=== PATIENT | male | born 1940 | race Caucasian/White ===

== ENCOUNTER → 2023-11-30 08:03 | Outpatient (REF) | payer MEDICARE, SELFPAY | LOC: DHCBS HW 08:03 | PROVIDERS: ATTENDING PHYSICIAN Internal Medicine Cardiovascular Disease; FAMILY PHYSICIAN Nurse Practitioner Family | DX: R06.09 Other forms of dyspnea (principal) | CPT/HCPCS: 93306 ==

== ENCOUNTER → 2024-01-11 13:16 | Outpatient (REF) | payer MEDICARE, SELFPAY ==
[2024-01-11 16:37] LABS: Urine Protein 20 mg/dl (0-12)
[2024-01-11 16:46] LABS: Blood Urea Nitrogen 38 mg/dl (9-20); Calcium 8.9 mg/dl (8.4-10.2); Carbon Dioxide 23 mmol/L (22-30); Chloride 102 mmol/L (98-107); Glucose 89 mg/dl (70-99); Phosphorus 3.1 mg/dl (2.5-4.5); Potassium 4.4 mmol/L (3.5-5.1); Sodium 131 mmol/L (135-145); eGFR 39.26
== END ==
LOC: HWRAD 13:16
PROVIDERS: ATTENDING PHYSICIAN Internal Medicine; FAMILY PHYSICIAN Nurse Practitioner Family
DX: N28.1 Cyst of kidney, acquired (principal); N18.32 Chronic kidney disease, stage 3b; N25.81 Secondary hyperparathyroidism of renal origin
CPT/HCPCS: 36415; 76770; 80069; 82570; 83970; 84156

== ENCOUNTER → 2024-02-14 13:16 | Outpatient (REF) | payer MEDICARE, SELFPAY ==
[2024-02-14 16:08] LABS: Osmolality Serum 299 mOsm/kg (275-300)
[2024-02-14 16:17] LABS: Albumin 3.9 g/dl (3.5-5.0); Blood Urea Nitrogen 39 mg/dl (9-20); Calcium 9.6 mg/dl (8.4-10.2); Carbon Dioxide 21 mmol/L (22-30); Chloride 106 mmol/L (98-107); Glucose 98 mg/dl (70-99); Phosphorus 4.4 mg/dl (2.5-4.5); Potassium 4.4 mmol/L (3.5-5.1); Sodium 138 mmol/L (135-145); eGFR 36.66
[2024-02-14 16:36] LABS: TSH 0.45 uIU/ml (0.47-4.68)
[2024-02-14 19:00] LABS: Osmolality Urine 404 mOsm/kg (300-900)
[2024-02-14 19:12] LABS: Urine Sodium 85 mmol/L (30-90)
== END ==
LOC: HWLAB 13:16
PROVIDERS: ATTENDING PHYSICIAN Internal Medicine; FAMILY PHYSICIAN Nurse Practitioner Family
DX: E78.00 Pure hypercholesterolemia, unspecified (principal); D64.9 Anemia, unspecified; N28.1 Cyst of kidney, acquired; I10 Essential (primary) hypertension; E87.20 Acidosis, unspecified
CPT/HCPCS: 36415; 80069; 83930; 83935; 84300; 84443

== ENCOUNTER → 2024-03-02 16:56 | Outpatient (REF) | payer MEDICARE, SELFPAY | LOC: RAD 16:56 | PROVIDERS: ATTENDING PHYSICIAN Nurse Practitioner Family | DX: M25.571 Pain in right ankle and joints of right foot (principal); Z91.81 History of falling; M25.531 Pain in right wrist | CPT/HCPCS: 71101; 73110; 73630 ==

== ENCOUNTER → 2024-03-05 15:49 | Outpatient (REF) | payer MEDICARE, SELFPAY | LOC: RAD 15:49 | PROVIDERS: ATTENDING PHYSICIAN Nurse Practitioner Family | DX: M25.571 Pain in right ankle and joints of right foot (principal); Z91.81 History of falling; M25.531 Pain in right wrist | CPT/HCPCS: 73610 ==

== ENCOUNTER 2024-03-05 16:38 | Emergency (ER) | payer MEDICARE, SELFPAY ==
[2024-03-05 16:49] VITALS: BP 133/78
--- NOTE | 2024-03-05 18:38 | ED.MUSCINJ ---
HPI-Injury
General
Chief Complaint: Musculo-Skeletal Complaint
Source: patient
Exam Limitations: none
Time Seen by Provider: 03/05/24 18:16
Travel History
Have you had any contact with someone who has COVID-19?: No
Do you have any symptoms of coronavirus? Fever > 100 degrees, chills, cough, shortness of breath, sore throat, loss of taste or smell, muscle aches, or headache?: No
History of Present Illness-Injury
Initial Injury comments:
83-year-old male presents complaining of right ankle pain and swelling. He fell 3 days ago and twisted his right ankle. Outpatient x-rays today demonstrated an ankle fracture and was sent here for evaluation. He is not anticoagulated. He has
been walking on his ankle for the past 3 days. He notes swelling and bruising. No other complaints at this time
Phy Exam
Physical Exam
Physical Exam:
General: Well-appearing male no acute respiratory distress
HEENT: Normocephalic atraumatic
Musculoskeletal exam: Right ankle swollen ecchymotic and tender medially and laterally. No significant deformity. The right knee is nontender
Vascular: 2 dorsalis pedis pulse right foot
Neurologic: Good sensation right foot
MDM/Problems Addressed
Differential Diagnosis Includes:
I have visualized x-rays of the right ankle which demonstrate mildly displaced distal fibula and distal tibia fracture. There is no joint space widening. Patient will require posterior and U-splint with orthopedic follow-up. He is accompanied by
his daughter and is going to be staying with his daughter for help.
*Critical Care Note
Total Time (30-74mins, 75-104mins- exclusive of procedures): Not Applicable
ED Attending Note
-
Portions of this chart may have been created with voice recognition software.� Occasional wrong word or��sound alike� substitutions may have occurred due to the inherent limitations of voice recognition software.
Discharge Plan
Departure
Patient Disposition: Home (Routine Discharge)
Date of Disposition: 03/05/24
Time of Disposition: 18:40
Patient with high blood pressure during this ER visit?: No
Discharge Problem:
Ankle fracture, bimalleolar, closed
Instructions: Muscle and Bone Pain (DC), Splint Care
Referrals:
Beatrice Vergara CRNP [Family Provider] -
Sid Martin MD [Active] -
Activity Restrictions/Additional Instructions:
Keep splint on. Elevate for swelling. You may use Tylenol or ibuprofen for pain. Follow-up with orthopedics for next available appointment. Do not bear weight on the right leg
Interventions
Interventions:
*ED COVID-19 Vaccine History Last Done: 03/05/24 16:49
Discharge Date and Time
Print Language: BURKINAN
[2024-03-05 19:06] VITALS: BP 103/73
== END 2024-03-05 19:07 | disposition home or self-care (01) ==
LOC: EMR 16:38
PROVIDERS: EMERGENCY PHYSICIAN Student in an Organized Health Care Education/Training Program; FAMILY PHYSICIAN Nurse Practitioner Family
DX: S82.841A Displaced bimalleolar fracture of right lower leg, initial encounter for closed fracture (principal); X50.1XXA Overexertion from prolonged static or awkward postures, initial encounter
CPT/HCPCS: 99283; 29505; 73610

== ENCOUNTER → 2024-03-12 11:37 | Outpatient (REF) | payer MEDICARE, SELFPAY ==
[2024-03-12 12:51] LABS: % Basophils 0.6 % (0-2); % Immature Granulocytes 0.7 % (0-0.5); % Lymphocytes 19.2 % (20.5-51.1); % Monocytes 10.1 % (1.7-9.3); % Neutrophils 67.4 % (42.2-75.2); Absolute Basophils 0.1 10^3/uL (0-0.2); Absolute Eosinophils 0.2 10^3/uL (0-0.7); Absolute Immature Granulocytes 0.1 10^3/uL (0-0.05); Absolute Lymphocytes 1.6 10^3/uL (1.2-3.4); Absolute Monocytes 0.9 10^3/uL (0.1-0.6); Absolute Neutrophils 5.7 10^3/uL (1.4-6.5); Hematocrit 37.3 % (39.0-52.0); Hemoglobin 12.2 g/dL (13.0-18.0); Mean Corp Hgb Conc. 32.7 g/dL (33.0-37.0); Mean Corpuscular Hgb 32.4 pg (27.0-31.0); Mean Corpuscular Volume 99.2 fL (80.0-94.0); Mean Platelet Volume 9.5 fL (7.4-10.4); Nucleated Red Blood Cells % 0 % (-); Platelet Count 316 10^3/uL (130-400); Red Blood Cell Count 3.76 10^6/uL (4.70-6.10); Red Cell Dist. Width 13.5 % (11.5-14.5); White Blood Cell Count 8.5 10^3/uL (4.8-10.8)
[2024-03-12 14:01] LABS: Blood Urea Nitrogen 39 mg/dl (9-20); Calcium 9.5 mg/dl (8.4-10.2); Carbon Dioxide 23 mmol/L (22-30); Chloride 105 mmol/L (98-107); Glucose 116 mg/dl (70-99); Potassium 4.6 mmol/L (3.5-5.1); Sodium 140 mmol/L (135-145)
== END ==
LOC: REG 11:37
PROVIDERS: ATTENDING PHYSICIAN Student in an Organized Health Care Education/Training Program; FAMILY PHYSICIAN Nurse Practitioner Family
DX: Z01.818 Encounter for other preprocedural examination (principal)
CPT/HCPCS: 36415; 80048; 85025; 93005

== ENCOUNTER 2024-03-15 06:12 | Day surgery (SDC) | payer MEDICARE, SELFPAY ==
--- NOTE | 2024-03-13 13:46 | PTCARENOTE ---
Patients 03/12 EKG abnormal- Reviewed by Dr. Lee. No additional interventions required.
[2024-03-15] VITALS (7 sets, daily range): BP systolic 122–170; BP diastolic 70–91; BMI 28.3
[2024-03-15] MEDS: NORMOSOL-R 1000 IV (14:47)
== END 2024-03-15 19:40 | disposition home or self-care (01) ==
LOC: SDS 06:12
PROVIDERS: ATTENDING PHYSICIAN Student in an Organized Health Care Education/Training Program
DX: S82.841A Displaced bimalleolar fracture of right lower leg, initial encounter for closed fracture (principal); W19.XXXA Unspecified fall, initial encounter
CPT/HCPCS: 27814; 73600; 76000; C1713

== ENCOUNTER → 2024-07-06 11:42 | Outpatient (REF) | payer MEDICARE, SELFPAY ==
[2024-07-06 12:53] LABS: HDL Cholesterol 77 mg/dl; LDL Cholesterol, Calculated 51 mg/dl; Total Cholesterol 163 mg/dl (50-199); Triglyceride 175 mg/dl (10-149); Very Low Density Lipoprotein 35 mg/dl (0-30)
== END ==
LOC: REG 11:42
PROVIDERS: ATTENDING PHYSICIAN Nurse Practitioner Family
DX: E78.00 Pure hypercholesterolemia, unspecified (principal); Z12.5 Encounter for screening for malignant neoplasm of prostate
CPT/HCPCS: 36415; 80061; G0103

== ENCOUNTER 2024-08-24 20:51 | Inpatient (IN) | payer MEDICARE, SELFPAY ==
[2024-08-24] VITALS (13 sets, daily range): BP systolic 106–181; BP diastolic 74–103; BMI 26.8; BMI 25.2
--- NOTE | 2024-08-24 14:28 | ED.GENMED ---
History of Present Illness
General
Chief Complaint: Breathing Problem
Source: patient
Exam Limitations: none
Time Seen by Provider: 08/24/24 14:27
Nursing documentation reviewed up to this point in time: agreed with
History of Present Illness
History of Present Illness:
83-year-old male with/sleep apnea, HTN, HLD, MVP, GERD, Prostate CA, CKD 3, depression, remote history of vertigo needing P/T, presents for 'a few days' of intermittent dizziness, mild nausea, no vomiting. Symptoms worsened today as he felt dizzy
even when sitting still. Using his rollator as usual states he had 'a lot of trouble keeping my balance.'
Denies weakness or numbness in extremities.
Also dyspnea on exertion ie walking from bedroom to bathroom today.
Denies headache, not anticoagulated. Denies change in vision. Denies CP, abdominal pain. Denies f/c, d/c.
Past History
Past History
ED Past Medical History: Cancer (Prostate CA in remission since 2004), GERD, HTN, Hypercholesterolemia, Renal failure, Psychiatric (Depression), Other (Heart murmur), Other (Prostate CA) and Other (Restless leg syndrome)
ED Past Surgical History: Orthopedic and Other (hiatal hernia repair)
Social History
Tobacco: Non-smoker
Alcohol: None
Personal: Single
Living: alone
Employment: Retired
Review of Systems
Review of Systems
Allergies reviewed?: Yes
All Other Systems: ROS reviewed and negative except as documented in HPI and ROS
Constitutional: Denies fever or fatigue
Respiratory: Reports trouble breathing (DAVILA today walking from bedroom short way to bathroom)
Cardiac: Denies chest pain, diaphoresis, palpitations or syncope
ABD/GI: Reports nausea ('elías queasy in my stomach' past 2 days); Denies abdominal pain, vomiting, diarrhea or constipated
: Reports no symptoms
Musculoskeletal: Reports other (restless leg syndrome); Denies edema
Skin: Reports no symptoms
Neurological: Reports dizzy; Denies headache, weakness or numbness
Phy Exam
Physical Exam
Physical Exam:
GENERAL: No acute distress. A&Ox3.
CONSTITUTIONAL: Afebrile.
EYES: PERRL, conjunctivae normal
Neck: Supple
ENMT: moist mucus membranes, Pharynx nl
RESPIRATORY: Regular respirations, nonlabored, lungs clear. Pulse ox 97% RA at rest
CARDIOVASCULAR: Regular rate and rhythm, no murmurs, no rubs.
GI: Soft, nontender, normal BS
MUSCULOSKELETAL: Moves with ease. Well perfused.
SKIN: Warm, dry, pink
PSYCH: Normal mood and affect. Well kept, interactive and appropriate
NEUROLOGIC: Awake, alert and oriented. Speech clear. Strength equal throughout. Cranial nerves II through XII intact. No focal neurological deficits
Scores
NIH Stroke Score
Level of Consciousness: 0 - Alert
LOC Questions: 0-Answers both correctly
LOC Commands: 0-Performs both correctly
Best Horizontal Gaze: 0-Normal
Visual Mcgraw: 0=Normal, no visual loss
Facial Palsy: 0=Normal, symmetrical
Motor - Right Arm: 0=No drift 10 seconds
Motor - Left Arm: 0=No drift 10 seconds
Motor - Right Le-No drift 5 seconds
Motor - Left Le-No drift 5 seconds
Limb Ataxia: 0-Absent
Sensation: 0-Normal
Best Language: 0-No aphasia
Dysarthria: 0-Normal
Extinction and Inattention: 0-No abnormality
Total Score:: 0
Heart Failure Risk
Heart Failure Risk Score: Not Applicable
PESI
Age: 83
Sex: Male
History of cancer: Yes
History of heart failure: No
History of chronic lung disease: No
Heart rate >/= 110: No
Systolic BP <100 mmHg: No
Respiratory rate >/= 30: No
Temperature <36�C/96.8�F: No
Altered mental status (disorientation, lethargy, stupor, or coma): No
O2 saturation <90%: No
Score: 124
Class: Class 4: <126 (high mortality risk 4.0-11.4%)
Course
Orders/Labs/Results
Orders:
Orders
08/24/24 14:32
EKG [Electrocardiogram (*1)] Urgent
Reason for Study: Shortness of Breath
EKG- Treatment ONCE
08/24/24 14:43
CR Chest - 2 Views Urgent
Comment:
Reason For Exam: dizziness, SOB
08/24/24 14:44
Complete Blood Count/With Diff Urgent
Comprehensive Metabolic Panel Urgent
NT-proBNP Urgent
Troponin I Urgent
08/24/24 14:52
CT Head & Neck Angio W/wo IV Urgent
Comment:
Reason For Exam: dizzy, unbalanced
08/24/24 Dinner
Regular
At Your Request: Full Participation
Does patient need a safe tray?: No
08/24/24 16:19
Physical Therapy Consult [Pt Eval And Treat] Urgent
Treatment: Vestibular evaluation
Activity Level: As Tolerated
08/24/24 17:00
0.9% Sodium Chloride 500 ml [Nss] 500 ml IV BOLUS
08/24/24 17:14
Heparin 5,000 units IV NOW STA
Nursing to Place Non Medication Order As Directed
Physician Order: PTT 6 hours after initial start of Heparin infusion
Above order entered?: Yes
08/24/24 17:15
Heparin 53497 Units/250 ml 25,000 units in 250 ml IV PER PROTOCOL
Weight to be used for heparin protocol in kilograms (kg):: 62.2
Protocol:: DVT/PE
PTT Goal Range to be used:: PTT 73 to 111 seconds
Order type:: Initial
INITIAL Infusion Dose (UNITS/KG/hr) & then follow protocol:: 18 units/kg/hr
Infusion Dose in UNITS/hr & then follow protocol (UNITS/hr):: 1,100
INFUSION RATE in mL/hr & then follow protocol (mL/hr):: 11
For DVT/PE algorithm, re-bolus for low PTT?: Yes
PTT less than or equal to 64 seconds:: Re-bolus 80 units/kg (max 10,000units). Increase by 200 units/hr
(+ 2mL/hr)
PTT 64.1 to 72.9 seconds:: Re-bolus 40 units/kg (max 5,000 units). Increase by 100 units/hr
(+ 1mL/hr)
PTT 73 to 111 seconds:: Target Range. No change in rate.
PTT 111.1 to 130.9 seconds:: Decrease rate by 100 units/hr (- 1 mL/hr)
PTT 131 to 199.9 seconds:: HOLD for 1 hr. Then decrease by 200 units/hr (- 2mL/hr)
PTT greater than or equal to 200 seconds:: HOLD for 2 hrs & Notify Provider. Then decrease by 200 units/hr
(- 2mL/hr)
Lab follow-up:: Each change, PTT q6h until 2 consecutive are therapeutic. Then
PTT daily.
08/24/24 17:23
Protime/PTT Urgent
08/24/24 17:38
Heparin 5,000 units IV PRN PRN
08/24/24 17:39
Heparin 2,500 units IV PRN PRN
08/24/24 19:49
Admit/Transfer Patient As Directed
Co-Sign Provider:
Level of Care: Inpatient admission
Assign to:: Telemetry
Physician / Group: brianna hayden
Diagnosis: bilat pe 's
Reason for Telemetry: Arrhythmia
Date to Stop Telemetry: 08/27/24
Time to Stop Telemetry: 11:00
Reason for Hospitalization: bilat pe's
Expected length of stay greater than two midnights?: Yes
ELOS- Estimated Length of Stay in days: 4
I certify the patient meets the requirements for IP care: Yes
Code Status As Directed
Resuscitation Status: Full Code
08/24/24 19:58
PRN Pain Medication Management As Directed
May give lesser potent ordered pain med per pt: Yes
preference::
Protocol:: Medication orders for pain may be administered in a
manner that supports deferring to patient preference
when the pt is:
- Requesting an ordered lesser potent pain medication.
Least to most potent pain medications are defined
as: acetaminophen < NSAID < tramadol < opioids
(morphine, oxycodone, hydromorphone).
- Requesting a lesser dose of the same medication IF
ORDERED.
- Requesting a less intrusive route of administration
if both routes are prescribed by the provider (PO <
IV).
08/24/24 21:43
Acetaminophen [Tylenol] 650 mg PO Q4HPRN PRN
Bisacodyl [Dulcolax] 10 mg RECTAL [id number] PRN
Brimonidine Tartrate/Timolol [Combigan Eye Drops] See Dose Instructions BOTH EYES BID
Docusate W/Senna [Senokot-S] 1 tablet PO BIDPRN PRN
Polyethylene Glycol Powder [Miralax] 17 grams PO DAILYPRN PRN
08/24/24 21:43
Heparin Protocol- PTT Orders As Directed
PTT per Heparin protocol: -Obtain CBC and baseline PTT - if not already collected.
-Obtain PTT 6 hours from start of infusion. Then, every 6 hours until 2 consecutive
PTT's are therapeutic. Then, PTT Daily.
-With each rate change, obtain PTT every 6 hours until 2 consecutive PTT's are
therapeutic. Then, PTT Daily.
Activity As Directed
Activity Level: With Assistance
Intake/ Output As Directed
Frequency: Per unit guidelines
Notify MD As Directed
Notify physician if: PTT is greater than or equal to 200.
Vital Signs As Directed
Frequency: Per unit guidelines
O2 Therapy [RESP] Routine
Nasal Cannula Liter Flow: 2 LPM
Titrate/Wean O2 to maintain O2 sat greater than (%): 92
Pulse Ox/spot Check [RESP] Routine
Quantity: 1
Ot Eval And Treat Routine
Pt Eval And Treat Routine
Activity Level: As Tolerated
08/24/24 21:48
COVID-19 Antigen Urgent
Source: Nasal Swab
08/24/24 22:00
Gabapentin [Neurontin] 300 mg PO HS
Sodium Bicarbonate 325 mg PO BID
Tamsulosin [Flomax] 0.4 mg PO HS
08/24/24 23:00
Pantoprazole [Protonix] 40 mg PO BID
08/25/24 00:16
PTT Routine
08/25/24 05:53
Complete Blood Count/With Diff IN AM
Comprehensive Metabolic Panel IN AM
08/25/24 08:00
Calcium Carbonate/Vitamin D3 [Oscal 500 + D] 500 mg PO DAILY
Cholecalciferol (Vitamin D3) [VITAMIN D3 (cholecalciferol)] 25 mcg PO DAILY
Escitalopram Oxalate [Lexapro] 10 mg PO DAILY
Gabapentin [Neurontin] 200 mg PO BID@0800,1600
Lactobac/Bifidobac [Visbiome] 1 cap PO DAILY
Memantine HCl [Namenda] 10 mg PO DAILY
Multivitamin [Theragran] 1 tablet PO DAILY
Pravastatin Sodium [Pravachol] 20 mg PO DAILY
Rivastigmine [Exelon Patch] 4.6 mg TRANSDERM DAILY
08/25/24 22:00
Latanoprost [Xalatan Ophthalmic Solution] See Dose Instructions BOTH EYES HS
08/26/24 06:00
Complete Blood Count/No Diff Q2D
Comment: notify provider: Platelet count < 130,000 or decrease by 50% from baseline
Complete Blood Count/With Diff IN AM
Comprehensive Metabolic Panel IN AM
08/27/24 06:00
Complete Blood Count/With Diff IN AM
Comprehensive Metabolic Panel IN AM
08/27/24 11:00
DC Protocol for Telemetry ONCE
08/28/24 06:00
Complete Blood Count/No Diff Q2D
Comment: notify provider: Platelet count < 130,000 or decrease by 50% from baseline
08/30/24 06:00
Complete Blood Count/No Diff Q2D
Comment: notify provider: Platelet count < 130,000 or decrease by 50% from baseline
09/01/24 06:00
Complete Blood Count/No Diff Q2D
Comment: notify provider: Platelet count < 130,000 or decrease by 50% from baseline
09/03/24 06:00
Complete Blood Count/No Diff Q2D
Comment: notify provider: Platelet count < 130,000 or decrease by 50% from baseline
09/05/24 06:00
Complete Blood Count/No Diff Q2D
Comment: notify provider: Platelet count < 130,000 or decrease by 50% from baseline
09/07/24 06:00
Complete Blood Count/No Diff Q2D
Comment: notify provider: Platelet count < 130,000 or decrease by 50% from baseline
09/09/24 06:00
Complete Blood Count/No Diff Q2D
Comment: notify provider: Platelet count < 130,000 or decrease by 50% from baseline
Abnormal Lab Results
08/24/24
14:44
RBC 3.89 L 10^6/uL
(4.70-6.10)
Hgb 12.8 L g/dL
(13.0-18.0)
Hct 38.7 L %
(39.0-52.0)
MCV 99.5 H fL
(80.0-94.0)
MCH 32.9 H pg
(27.0-31.0)
Abs Immat Gran (auto) 0.1 H 10^3/uL
(0-0.05)
Absolute Monos (auto) 0.9 H 10^3/uL
(0.1-0.6)
Immature Gran % 0.9 H %
(0-0.5)
Lymphocytes % 18.5 L %
(20.5-51.1)
Monocytes % 13.8 H %
(1.7-9.3)
Carbon Dioxide 20 L mmol/L
(22-30)
BUN 30 H mg/dl
(9-20)
Creatinine 1.9 H mg/dL
(0.7-1.3)
Glucose 100 H mg/dl
(70-99)
08/24/24 14:44
08/24/24 14:44
Vital Signs
Initial and Last Documented VS:
Initial Vital Signs
Temp Pulse Resp BP Pulse Ox
97.9 F 86 16 123/87 93
08/24/24 14:25 08/24/24 14:25 08/24/24 14:25 08/24/24 14:25 08/24/24 14:25
Last Documented Vital Signs
Temp Pulse Resp BP Pulse Ox
98.0 F 95 18 132/87 97
08/25/24 08:01 08/25/24 08:01 08/25/24 08:01 08/25/24 08:01 08/25/24 08:01
MDM/Problems Addressed
Differential Diagnosis Includes:
posterior CVA, BPPV, vestibulopathy, dehydration
MDM/Problems Addressed:
83-year-old male with/sleep apnea, HTN, HLD, MVP, GERD, Prostate CA, CKD 3, depression, remote history of vertigo needing P/T, presents for 'a few days' of intermittent dizziness, mild nausea, no vomiting. Symptoms worsened today as he felt dizzy
even when sitting still. Using his rollator as usual states he had 'a lot of trouble keeping my balance.' He states he took his BP and it was 88/60
Denies weakness or numbness in extremities.
Also dyspnea on exertion ie walking from bedroom to bathroom today.
Denies headache, not anticoagulated. Denies change in vision. Denies CP, abdominal pain. Denies f/c, d/c.
Afebrile, NAD
EKG: NSR, RBBB
3:10 p.m.
CBC unremarkable
CMP: Kidney functions are at their baseline with BUN/creat 30/1.9 otherwise unremarkable
Troponin within normal limits
BNP 2160
P/T eval, agrees exam not consistent with BPPV
No hypotension here
Pt ambulating well with his walker, denies dizziness or room spinning
Pt states 'I don't feel any of those feelings I had before.'
5:00 p.m.
CTA with nothing acute intracranially
Radiologist reports has bilateral PEs involving his distal left main pulmonary after and interlobar pulmonary artery which extend out
PESI Score Class 4: <126 (high mortality risk 4.0-11.4%)
With reported hypotension at home, concern for poss R heart strain , central PE will, hydrate, consider dedicated PE study
Hospitalist notified of admission. Does not recommend PE study at this time due to poor kidney function and CT with IV contrast done earlier
Pt remains stable, asymptomatic.
Chronic conditions affecting care: HTN and Kidney disease
*EKG
EKG Intrepretation Date: 08/24/24
Interpretation: abnormal
Comparison EKG: no changes
Heart Rate: 84
Rate: normal
Rhythm: sinus
[place]: normal axis
Interval: normal interval
QRS Pattern: right bundle branch block
Ischemia: no ischemia
*Critical Care Note
Total Time (30-74mins, 75-104mins- exclusive of procedures): Not Applicable
ED Attending Note
-
Portions of this chart may have been created with voice recognition software.� Occasional wrong word or��sound alike� substitutions may have occurred due to the inherent limitations of voice recognition software.
Discharge Plan
Departure
Patient Disposition: Admit
Admit to: Telemetry
Presentation/result/management discussed w/ accepting MD/DO: Hospitalist
Condition: Fair
Discharge Problem:
Bilateral pulmonary embolism
Interventions
Interventions:
*Risk Screen - Suicide Last Done: 08/24/24 21:59
*General Assessment Last Done: 08/24/24 14:25
*Neglect/Abuse Screening Last Done: 08/24/24 14:25
ED- Fall Risk Assessment Last Done: 08/24/24 14:32
*ED COVID-19 Vaccine History Last Done: 08/24/24 14:25
*Nursing Disposition Last Done: 08/24/24 21:30
ED- Cardiac Assessment Last Done: 08/24/24 14:32
ED- Pulmonary Assessment Last Done: 08/24/24 14:32
Discharge Date and Time
Discharge Date/Time: 08/24/24 23:24
[2024-08-24 14:51] LABS: % Basophils 0.4 % (0-2); % Eosinophils 1.5 % (0-6); % Immature Granulocytes 0.9 % (0-0.5); % Lymphocytes 18.5 % (20.5-51.1); % Monocytes 13.8 % (1.7-9.3); % Neutrophils 64.9 % (42.2-75.2); Absolute Eosinophils 0.1 10^3/uL (0-0.7); Absolute Immature Granulocytes 0.1 10^3/uL (0-0.05); Absolute Lymphocytes 1.3 10^3/uL (1.2-3.4); Absolute Monocytes 0.9 10^3/uL (0.1-0.6); Absolute Neutrophils 4.4 10^3/uL (1.4-6.5); Hematocrit 38.7 % (39.0-52.0); Hemoglobin 12.8 g/dL (13.0-18.0); Mean Corp Hgb Conc. 33.1 g/dL (33.0-37.0); Mean Corpuscular Hgb 32.9 pg (27.0-31.0); Mean Corpuscular Volume 99.5 fL (80.0-94.0); Mean Platelet Volume 9.1 fL (7.4-10.4); Nucleated Red Blood Cells % 0 % (-); Platelet Count 267 10^3/uL (130-400); Red Blood Cell Count 3.89 10^6/uL (4.70-6.10); Red Cell Dist. Width 13.9 % (11.5-14.5); White Blood Cell Count 6.7 10^3/uL (4.8-10.8)
[2024-08-24 15:08] LABS: ALT (SGPT) 20 U/L (0-50); AST (SGOT) 18 U/L (17-59); Albumin 3.7 g/dl (3.5-5.0); Alkaline Phosphatase 110 U/L (38-126); Blood Urea Nitrogen 30 mg/dl (9-20); Calcium 9.1 mg/dl (8.4-10.2); Carbon Dioxide 20 mmol/L (22-30); Chloride 105 mmol/L (98-107); Estimated Creatinine Clearance 20 ml/min; Glucose 100 mg/dl (70-99); Potassium 4.5 mmol/L (3.5-5.1); Sodium 139 mmol/L (135-145); Total Bilirubin 0.4 mg/dl (0.2-1.3); Total Protein 6.3 g/dl (6.3-8.2); eGFR 34.35
[2024-08-24 15:20] LABS: NT-proBNP 2160 pg/ml; Troponin I 0.013 ng/ml
[2024-08-24] MEDS: HEPARIN 5000 UNITS IV (17:49)
[2024-08-24] MEDS: NSS 500 IV (17:49)
[2024-08-24] MEDS: HEPARIN 25000 UNITS/250 ML IV (17:52)
[2024-08-24 17:56] LABS: INR 0.97; PT 13.1 Sec (11.4-14.6)
[2024-08-24 17:57] LABS: APTT 31.1 Sec (23.4-35.0)
--- NOTE | 2024-08-24 18:41 | HPS.HSE ---
Family Physician
-
Family Physician: BRIANA Rios
Chief Complaint
-
Dizziness
History of Present Illness
83-year-old male from home, where he lives by himself complaining of a few days of intermittent dizziness with some mild nausea. He reports he initially started out with a headache several days ago all over his head that resolved then the
intermittent dizziness with nausea started. Today he reports the dizziness worsened and persisted even when he was sitting still. He typically uses his rollator to walk but was having lots of trouble maintaining his balance due to the dizziness.
He denies current dizziness and shortness of breath while sitting in bed. He denies recent travel, prolonged travel. He had a right tib-fib fracture repair in April with nonweightbearing on the right leg for April and May. He does report a
chronic runny nose he denies headache, fever, chills, blurred vision, chest pain, palpitations, shortness of breath, cough, abdominal pain, nausea, vomiting, diarrhea, weakness or numbness in extremities. On the CTA of his head and neck in the ER
it captured pulmonary emboli bilaterally involving the left distal main pulmonary artery and the right interlobar artery. He has no prior history of DVTs, PEs or clotting disorders.
He has past medical history of prostate cancer in remission since 2004, GERD, HTN, HLD, CKD, depression, cardiac murmur, restless leg syndrome, SHIRLEY, depression/anxiety
Medical History
Past Medical History
Past Medical History: Reports Other
Additional Past Medical History:
Dementia/mild
prostate cancer in remission since 2004
HTN
HLD
CKD 3B
GERD/gastric ulcers
MVP
Depression
Restless leg syndrome
SHIRLEY
Depression/anxiety
History of bleeding ulcer
Bilateral hearing aids
Past Surgical History: Reports Other
Additional Past Surgical History:
Hiatal hernia repair
Fracture right tib-fib April 2024 with martin and pin placement [facility]
Lumbar fusion L4-L5, S1
Bilateral shoulder replacements
Bilateral cataract extraction
Dementia/mild
MVP
GERD/gastric ulcers
History of bleeding ulcer
Bilateral hearing aids
Social History
Tobacco: Non-smoker
Alcohol: None
Drug: None
Personal: Single
Living: Alone
Employment: Retired
Family History
Family History: Other (No family history of blood clots, clotting disorders)
Allergies / Home Medications
Allergies reflects when Allergies were last updated in [employer].
Home Medications with original date entered in [employer]
Allergy/Medication List:
Allergies
Allergy/AdvReac Type Severity Reaction Status Date / Time
No Known Allergies Allergy Verified 03/15/24 13:28
Home Medications
Lactobacillus rhamnosus GG 10 billion cell capsule (Culturelle) 1 cap PO DAILY 03/14/24
acetaminophen 500 mg tablet 1,300 mg PO BID 03/14/24
aspirin 81 mg tablet,delayed release 81 mg PO HS 03/14/24
brimonidine 0.2 %-timolol 0.5 % eye drops (Combigan) 1 drp BOTH EYES BID 03/14/24
escitalopram oxalate 10 mg tablet 10 mg PO DAILY 03/14/24
gabapentin 400 mg capsule 1,200 mg PO HS 03/14/24
gabapentin 400 mg capsule 800 mg PO BID@0800,1800 03/14/24
hydrochlorothiazide 25 mg tablet 25 mg PO DAILY 03/14/24
latanoprost (PF) 0.005 % eye drops in a dropperette 1 drp BOTH EYES HS 03/14/24
memantine 10 mg tablet 10 mg PO BID 03/14/24
omeprazole 40 mg capsule,delayed release 40 mg PO BID 03/14/24
pravastatin 20 mg tablet 20 mg PO HS 03/14/24
rivastigmine 4.6 mg/24 hour transdermal patch 4.6 mg transdermal DAILY for memory 03/14/24
sodium bicarbonate 325 mg tablet 325 mg PO BID 03/14/24
tamsulosin 0.4 mg capsule (Flomax) 0.4 mg PO HS 03/14/24
calcium 500 mg (as carbonate)-vitamin D3 10 mcg (400 unit) tablet (Calcium 500 With D) 1 tab PO DAILY 08/24/24
cholecalciferol (vitamin D3) 25 mcg (1,000 unit) capsule (Vitamin D3) 25 mcg PO DAILY 08/24/24
coQ10 (ubiquinol) 100 mg capsule (Qunol Shay CoQ10) 100 mg PO DAILY 08/24/24
dorzolamide 2 % eye drops 1 drp BOTH EYES BID 08/24/24
multivitamin 1 tab PO DAILY 08/24/24
Review of Systems
-
History Source: Patient and Family (Daughter at bedside)
A 12 point ROS was completed and negative except as noted: Yes
Constitutional: Denies Fever, Fatigue or Chills
EENT: Reports Sore Throat and Runny Nose (Chronic)
Respiratory: Reports Trouble Breathing; Denies Cough
Cardiac: Denies Chest Pain, Diaphoresis, Palpitations or Syncope
Abdomen/GI: Denies Abdominal Pain, Nausea, Vomiting, Diarrhea or Constipated
: Denies Dysuria, Frequency, Flank Pain, Incontinence, Difficulty Voiding or Urgency
Musculoskeletal: Denies Joint Pain or Edema
Skin: Denies Itching or Rash
Neurological: Reports Dizzy and Headache
Endocrine: Reports No Symptoms
Hematologic/Lymphatic: Reports No Symptoms
Psych: Reports Calm
Physical Exam
Vital Signs
Vital Signs
Temp Pulse Resp BP Pulse Ox
97.9 F 87 17 132/93 93
08/24/24 14:25 08/24/24 18:15 08/24/24 18:15 08/24/24 17:00 08/24/24 18:15
Physical Exam
General: Comfortable and Conversant; No Pain, Fever or Chills
HEENT: NormoCephalic, Anicteric, Moist mucous membranes, PERRLA, [place] Conjunctivae and No Ptosis
Respiratory: Clear; No Wheezes, Rales or Rhonchi
Cardiac: S1/S2 and Regular Rhythm; No Murmur, Rub, Gallop, Peripheral Edema or JVD
GI: Soft, Non Tender, Non Distended, Normal Bowel Sounds and No Hepatosplenomegaly
Rectal: Deferred by Provider
Genito-urinary: Deferred by me
Musculoskeletal: No Clubbing, No Cyanosis and No Edema
Skin: Warm and Dry; No Rash
Neuro: AO x 3, No Motor Deficits, Nonfocal/grossly intact, Cranial Nerves Intact and No Sensory Deficits; No Slurred Speech, Facial Droop, Tremors or Sedated
Psych: Calm
Laboratory Results
-
08/24/24 14:44
08/24/24 14:44
Laboratory Results
PT 13.1 Sec (11.4-14.6) 08/24/24 17:23
INR 0.97 08/24/24 17:23
APTT 31.1 Sec (23.4-35.0) 08/24/24 17:23
Total Bilirubin 0.4 mg/dl (0.2-1.3) 08/24/24 14:44
AST 18 U/L (17-59) 08/24/24 14:44
ALT 20 U/L (0-50) 08/24/24 14:44
Alkaline Phosphatase 110 U/L (38-126) 08/24/24 14:44
Troponin I 0.013 ng/ml 08/24/24 14:44
Data Reviewed
-
Diagnostic Radiology: Report Reviewed by me
CT Scan: Report Reviewed by me
Lab Data: Labs Reviewed by me
Impression/Plan
-
Impression/plan:
Admit to telemetry
#Bilateral pulmonary emboli distal left main pulmonary artery/anterior lobar pulmonary artery
#Acute hypoxic resp inusff 2/2 to bilat Pe's(patient not in any respiratory distress)
90% RA will start [address] PE study held given creat clearance of 20 and cta earlier with contrast
-IV heparin drip
-Check 2D echo
-IV NSS 1 L given patient had CTA earlier with contrast
-check covid swab
2D echo 11/30/2023: EF 60-65%, mild LVH, no wall abnormalities, trace mitral regurg, mild/moderate aortic regurg, trace TR, pulm arterial pressure 26 mmHg
CTA head and neck:CT Brain: No acute intracranial process. Specifically, no evidence of acute hemorrhage. Mild senescent change.
There is layering secretions within the right greater than left maxillary sinuses which can be seen with sinusitis.
CTA Head: No significant arterial stenosis. Atherosclerotic calcifications of the intracranial ICAs without significant stenosis. No aneurysm.
CTA Neck: No significant arterial stenosis. Atherosclerotic calcifications of the bilateral carotid bifurcations without significant stenosis.
There are pulmonary emboli bilaterally involving the left distal main pulmonary artery which extends into the left segmental pulmonary arteries.
There is also a filling defect within the right interlobar artery consistent with embolus.
#CKD 3B
Creat 1.9 appears baseline
-Follow BMP
-Continue sodium bicarb 325 mg p.o. twice daily
#Dementia�mild
-Continue rivastigmine 4.6 transdermal patch and Namenda 10 mg twice daily
#GERD/Gastric
#History of bleeding ulcer
-Continue omeprazole 40 mg twice daily
#HTN
BP 132/93
-hold hctz
# HLD
-Check lipid profile
#Depression/anxiety
-Continue Lexapro 10 mg daily
# MVP
#Restless leg syndrome
-Patient is on gabapentin 400 mg twice daily and 1200 mg every afternoon
Due to patient's CrCl of 20 with max dose gabapentin 700 mg recommended I will give 200 mg mg of gabapentin 0800, 1600, 2200
#SHIRLEY-noncompliant with his CPAP for the past 4 to 5 months
I advised patient to follow-up with his pulmonary Dr. Garcia for repeat PFTs/sleep study
#Prostate cancer in remission since 2004
#BPH
Continue Flomax 0.4 mg at bedtime
#Bilateral hearing aids
Full code per patient
--- NOTE | 2024-08-24 18:49 | W.PN.UPDATE ---
Update Note
Progress Note Update
Patient seen in conjunction with COPY LATHE OPERATOR, I agree with the findings on history and physical as well as the assessment and plan unless stated otherwise.
Briefly this is an 83-year-old who has a past medical history significant for hypertension, GERD, hyperlipidemia, SHIRLEY, CKD stage III, history of prostate cancer and prior episodes of vertigo who presents to the emergency department with intermittent
dizziness/lightheadedness and nausea without vomiting present for a few days. Symptoms worsened today. [place] unbalanced. He also reports dyspnea on exertion with just walking across the room. Denies any chest pain, palpitations, diaphoresis neuro
cough fevers or chills. Patient denies any urinary symptoms. He denies any focal weaknesses in his upper or lower extremities. He denies any vision changes.
His neurological exam was nonfocal.
Vital signs in the ED showed a stable blood pressure of 132/93 with a pulse rate of 87 and oxygen saturation of 93% on room air. ECG showed normal sinus rhythm at a rate of 80 with a right bundle branch block that is unchanged from prior. His
troponin was 0.01 and his BNP was 2000. CBC was unremarkable. He is electrolytes BUN/creatinine notable for his baseline creatinine of 1.9 but otherwise unchanged from prior. CT of the brain shows no acute findings. CTA of the head and neck
showed calcifications without significant stenosis. Incidental finding on the CTA showed left distal main thrombus as well as extending into the segmental arteries. There is also a right interlobar artery thrombus.
Assessment and plan
Patient with dizziness/lightheadedness and dyspnea on exertion without chest pain found to have a new onset bilateral PE on CTA of the head and neck which does not have any provoking factors.
Pulmonary emboli - Hemodynamically stable and not requiring oxygen. Cannot rule out a saddle embolus based on current imaging. Cannot rule out RV strain. No ECG changes and negative troponin suggests not a submassive PE.
- admit to telemetry
- agree with heparin gtt pending additional testing
- obtain echo in am, no current leg swelling or h/o leg swelling, hold off on leg u/s
- if patient develops tachycardia or becomes relatively hypotensive will get a dedicated Chest CTA and consult pulm and IR
- h/o hiatal hernia, pud with remote GI bleed but otherwise no known bleeding risk factors but currently on aspirin. No h/o known CAD or CVA. Hold aspirin while on AC, continue ppi bid
- routine malignancy screening per pmd, check Xray here
- can be transitioned to oral AC if no procedures indicated.
CKD - Stable CKD III/IV s/p IV contrast
- post contrast ppx with NS 1 L for 12 hours post exposure
- renal dose medications (gabapentin)
- continue sodium bicarbonate
- continue flomax
Code status - full code
[2024-08-24 22:10] LABS: COVID-19 Antigen Negative (Negative)
--- NOTE | 2024-08-24 22:27 | PTCARENOTE ---
Pt. admitted from E.D., AAOx3, ST on monitor, call medrano within reach, bed alarm intact.
[2024-08-24] MEDS: COMBIGAN EYE DROPS 1 DROP BOTH EYES (22:59)
[2024-08-24] MEDS: SODIUM BICARBONATE 325 MG PO (23:00)
[2024-08-24] MEDS: FLOMAX 0.4 MG PO (23:00)
[2024-08-24] MEDS: NEURONTIN 300 MG PO (23:00)
[2024-08-24] MEDS: PROTONIX 40 MG PO (23:01)
[2024-08-25] VITALS (7 sets, daily range): BP systolic 115–139; BP diastolic 71–88; O2SAT 95; BMI 25.2
[2024-08-25 00:53] LABS: APTT > 200 Sec (23.4-35.0)
--- NOTE | 2024-08-25 02:00 | PTCARENOTE ---
Assumed care of pt from GAYATHRI Ventura at 0200. VSS at 0300, pt remains sinus rhythm on tele. No complaints of pain. Heparin gtt resumed at 0300 at 9 mL/hr. Will continue with current plan of care.
[2024-08-25 06:12] LABS: % Basophils 0.6 % (0-2); % Eosinophils 1.6 % (0-6); % Lymphocytes 22.3 % (20.5-51.1); % Monocytes 13.5 % (1.7-9.3); Absolute Basophils 0.1 10^3/uL (0-0.2); Absolute Eosinophils 0.1 10^3/uL (0-0.7); Absolute Immature Granulocytes 0.1 10^3/uL (0-0.05); Absolute Lymphocytes 1.7 10^3/uL (1.2-3.4); Absolute Neutrophils 4.7 10^3/uL (1.4-6.5); Hematocrit 39.4 % (39.0-52.0); Hemoglobin 12.9 g/dL (13.0-18.0); Mean Corp Hgb Conc. 32.7 g/dL (33.0-37.0); Mean Corpuscular Hgb 32.7 pg (27.0-31.0); Mean Platelet Volume 9.1 fL (7.4-10.4); Nucleated Red Blood Cells % 0 % (-); Platelet Count 251 10^3/uL (130-400); Red Blood Cell Count 3.94 10^6/uL (4.70-6.10); Red Cell Dist. Width 13.8 % (11.5-14.5); White Blood Cell Count 7.7 10^3/uL (4.8-10.8)
[2024-08-25 06:27] LABS: APTT 118.2 Sec (23.4-35.0)
[2024-08-25 06:39] LABS: ALT (SGPT) 17 U/L (0-50); AST (SGOT) 14 U/L (17-59); Albumin 3.2 g/dl (3.5-5.0); Alkaline Phosphatase 113 U/L (38-126); Blood Urea Nitrogen 25 mg/dl (9-20); Calcium 8.7 mg/dl (8.4-10.2); Carbon Dioxide 22 mmol/L (22-30); Chloride 107 mmol/L (98-107); Estimated Creatinine Clearance 23 ml/min; Glucose 100 mg/dl (70-99); Potassium 4.3 mmol/L (3.5-5.1); Sodium 140 mmol/L (135-145); Total Bilirubin 0.3 mg/dl (0.2-1.3); Total Protein 5.6 g/dl (6.3-8.2); eGFR 39.26
[2024-08-25] MEDS: LEXAPRO 10 MG PO (08:21)
[2024-08-25] MEDS: VITAMIN D3 (cholecalciferol) 25 MCG PO (08:21)
[2024-08-25] MEDS: THERAGRAN 1 TABLET PO (08:21)
[2024-08-25] MEDS: NEURONTIN 200 MG PO ×2 (08:22→15:27)
[2024-08-25] MEDS: PRAVACHOL 20 MG PO (08:22)
[2024-08-25] MEDS: OSCAL 500 + D 500 MG PO (08:22)
[2024-08-25] MEDS: PROTONIX 40 MG PO ×2 (08:22→20:55)
[2024-08-25] MEDS: SODIUM BICARBONATE 325 MG PO ×2 (08:23→20:55)
[2024-08-25] MEDS: VISBIOME 1 CAP PO (08:23)
[2024-08-25] MEDS: NAMENDA 10 MG PO (08:23)
[2024-08-25] MEDS: EXELON PATCH 4.6 MG TRANSDERM (08:24)
[2024-08-25] MEDS: COMBIGAN EYE DROPS 1 DROP BOTH EYES ×2 (08:31→20:56)
[2024-08-25 09:55] LABS: APTT 118.5 Sec (23.4-35.0)
--- NOTE | 2024-08-25 12:30 | CM ---
Addendum entered by Rose Albrecht 08/25/24 13:28:
CM spoke with pharmacy staff- cost for Eliquis starter pack- $43.68. Patient agreeable to cost, update to Hospitalist.
Original Note:
Patient seen bedside, initial assessment completed. Patient resides alone on second floor apartment, elevator access. Patient has a rollator which he uses all of the time in home, is current with PT services, unsure name of PT agency, reports he
just completed OT services. Patient denies SNF history. Patient confirms PCP Beatrice Vergara, pharmacy [facility], confirms prescription coverage, patient reports he has AAR. Patient denies any insecurities at home. Patient currently on
O2, is not on home O2.
CM received consult for cost of Eliquis starter pack, 10 mg bid 7 days, then 5 mg bid. CM placed call to patients pharmacy, unable to provide cost of
Jardiance until script it obtained, TT to Hospitalist. CM placed call to [facility] [phone], informed call center closed over weekend. CM will continue to follow for all discharge planning needs.
Plan; home, watch for VN need, no skilled need at this time.
--- NOTE | 2024-08-25 14:04 | W.PN.HOSP.TC ---
Today's Communication/Plan
-
ECHO
LE Dopplers
Heparin drip for 24 hours, switch to Eliquis
Wean O2 as tolerated, O2 goal greater than 92%
Assessment / Plan
Assessment / Plan
Physical Exam
General: Comfortable and Conversant; No Pain, Fever or Chills
HEENT: NormoCephalic, Anicteric, Moist mucous membranes, PERRLA, [place] Conjunctivae and No Ptosis
Respiratory: Clear; No Wheezes, Rales or Rhonchi
Cardiac: S1/S2 and Regular Rhythm; No Murmur, Rub, Gallop, Peripheral Edema or JVD
GI: Soft, Non Tender, Non Distended, Normal Bowel Sounds and No Hepatosplenomegaly
Rectal: Deferred by Provider
Genito-urinary: Deferred by me
Musculoskeletal: No Clubbing, No Cyanosis and No Edema
Skin: Warm and Dry; No Rash
Neuro: AO x 3, No Motor Deficits, Nonfocal/grossly intact, Cranial Nerves Intact and No Sensory Deficits; No Slurred Speech, Facial Droop, Tremors or Sedated
Psych: Calm
#Bilateral pulmonary emboli distal left main pulmonary artery/anterior lobar pulmonary artery
#Acute hypoxic respiratory failure 2/2 to bilat Pe's(patient not in any respiratory distress)
-wean o2 as tolerated; goal o2>92%
-CT PE study held given creat clearance of 20 and cta earlier with contrast
-IV heparin drip x 24 hours - then switch to Eliquis - cost is ok
-Check 2D echo
-LE Dopplers ordered
-Trop neg; BNP 2000
#CKD 3B
Creat 1.9 appears baseline
-Follow BMP
-Continue sodium bicarb 325 mg p.o. twice daily
#Dementia�mild
-Continue rivastigmine 4.6 transdermal patch and Namenda 10 mg twice daily
#GERD/Gastric
#History of bleeding ulcer
-Continue omeprazole 40 mg twice daily
#HTN
BP 132/93
-hold hctz
# HLD
-statin
#Depression/anxiety
-Continue Lexapro 10 mg daily
# MVP
#Restless leg syndrome
-Patient is on gabapentin 400 mg twice daily and 1200 mg every afternoon
Due to patient's CrCl of 20 with max dose gabapentin 700 mg recommended I will give 200 mg mg of gabapentin 0800, 1600, 2200
#SHIRLEY-noncompliant with his CPAP for the past 4 to 5 months
I advised patient to follow-up with his pulmonary Dr. Garcia for repeat PFTs/sleep study
#Prostate cancer in remission since 2004
#BPH
Continue Flomax 0.4 mg at bedtime
#Bilateral hearing aids
Full code per patient
Total time spent on today's encounter was 51 minutes which included time spent in counseling the patient/family regarding diagnosis and treatment plan as listed above, goals of care, and symptom management. Case was discussed with nursing staff,
specialists, and care coordinators/case management. All labs and imaging personally reviewed by me. Remainder the time spent in detailed review of previous records, lab data, imaging, and other medical provider documentation.
Anticipated Discharge: > 48 hours
Subjective/Interval History
-
Date of Service: August 25, 2024
No acute events overnight
Objective Data
-
Labs:
Laboratory Results
08/25/24 08/25/24 08/25/24
05:53 08:57 16:00
WBC 7.7
Hgb 12.9 L
Hct 39.4
Plt Count 251
APTT 118.2 H 118.5 H Pending
Sodium 140
Potassium 4.3
Chloride 107
Carbon Dioxide 22
BUN 25 H
Creatinine 1.7 H
Glucose 100 H
Calcium 8.7
Total Bilirubin 0.3
AST 14 L
ALT 17
Alkaline Phosphatase 113
Vital Signs:
Vital Signs
Temp Pulse Resp BP Pulse Ox
98.6 F 87 18 115/77 96
08/25/24 11:35 08/25/24 11:35 08/25/24 11:35 08/25/24 11:35 08/25/24 11:35
Review of Systems
-
History Source: Patient
All other systems: Not reviewed unless documented
Data Reviewed
-
CT Scan: Image personally visualized and interpreted and Report Reviewed by me
Labs: Labs Reviewed by me
[2024-08-25 17:16] LABS: APTT 71.5 Sec (23.4-35.0)
[2024-08-25] MEDS: HEPARIN 2500 UNITS IV (17:41)
[2024-08-25] MEDS: FLOMAX 0.4 MG PO (22:04)
[2024-08-25] MEDS: NEURONTIN 300 MG PO (22:04)
[2024-08-25] MEDS: XALATAN OPHTHALMIC SOLUTION 1 DROP BOTH EYES (22:04)
[2024-08-25] MEDS: HEPARIN 25000 UNITS/250 ML IV (22:10)
[2024-08-26] VITALS (7 sets, daily range): BP systolic 107–150; BP diastolic 67–99; PULSE 96; O2SAT 98
[2024-08-26 00:11] LABS: APTT 143.2 Sec (23.4-35.0)
[2024-08-26] MEDS: PRAVACHOL 20 MG PO (07:53)
[2024-08-26] MEDS: VISBIOME 1 CAP PO (07:53)
[2024-08-26] MEDS: THERAGRAN 1 TABLET PO (07:53)
[2024-08-26] MEDS: VITAMIN D3 (cholecalciferol) 25 MCG PO (07:53)
[2024-08-26] MEDS: PROTONIX 40 MG PO ×2 (07:53→20:03)
[2024-08-26] MEDS: NAMENDA 10 MG PO (07:53)
[2024-08-26] MEDS: NEURONTIN 200 MG PO ×2 (07:53→16:25)
[2024-08-26] MEDS: OSCAL 500 + D 500 MG PO (07:53)
[2024-08-26] MEDS: SODIUM BICARBONATE 325 MG PO ×2 (07:54→20:03)
[2024-08-26] MEDS: EXELON PATCH 4.6 MG TRANSDERM (07:54)
[2024-08-26] MEDS: LEXAPRO 10 MG PO (07:54)
[2024-08-26] MEDS: COMBIGAN EYE DROPS 1 DROP BOTH EYES ×2 (07:55→20:03)
[2024-08-26 08:14] LABS: Hematocrit 41.1 % (39.0-52.0); Hemoglobin 13.9 g/dL (13.0-18.0); Mean Corp Hgb Conc. 33.8 g/dL (33.0-37.0); Mean Corpuscular Hgb 33.3 pg (27.0-31.0); Mean Corpuscular Volume 98.6 fL (80.0-94.0); Mean Platelet Volume 9.6 fL (7.4-10.4); Platelet Count 268 10^3/uL (130-400); Red Blood Cell Count 4.17 10^6/uL (4.70-6.10); Red Cell Dist. Width 14.3 % (11.5-14.5); White Blood Cell Count 7.2 10^3/uL (4.8-10.8)
[2024-08-26 08:18] LABS: ALT (SGPT) 18 U/L (0-50); AST (SGOT) 17 U/L (17-59); Albumin 3.6 g/dl (3.5-5.0); Alkaline Phosphatase 114 U/L (38-126); Blood Urea Nitrogen 31 mg/dl (9-20); Calcium 9.3 mg/dl (8.4-10.2); Carbon Dioxide 21 mmol/L (22-30); Chloride 107 mmol/L (98-107); Estimated Creatinine Clearance 22 ml/min; Glucose 99 mg/dl (70-99); Potassium 4.2 mmol/L (3.5-5.1); Sodium 140 mmol/L (135-145); Total Bilirubin 0.4 mg/dl (0.2-1.3); Total Protein 6.2 g/dl (6.3-8.2); eGFR 36.66
[2024-08-26] MEDS: ELIQUIS 10 MG PO ×2 (10:02→20:03)
--- NOTE | 2024-08-26 14:16 | W.PN.HOSP.TC ---
Today's Communication/Plan
-
Switch to Eliquis
ECHO in am
Assessment / Plan
Assessment / Plan
Physical Exam
General: Comfortable and Conversant; No Pain, Fever or Chills
HEENT: NormoCephalic, Anicteric, Moist mucous membranes, PERRLA, [place] Conjunctivae and No Ptosis
Respiratory: Clear; No Wheezes, Rales or Rhonchi
Cardiac: S1/S2 and Regular Rhythm; No Murmur, Rub, Gallop, Peripheral Edema or JVD
GI: Soft, Non Tender, Non Distended, Normal Bowel Sounds and No Hepatosplenomegaly
Rectal: Deferred by Provider
Genito-urinary: Deferred by me
Musculoskeletal: No Clubbing, No Cyanosis and No Edema
Skin: Warm and Dry; No Rash
Neuro: AO x 3, No Motor Deficits, Nonfocal/grossly intact, Cranial Nerves Intact and No Sensory Deficits; No Slurred Speech, Facial Droop, Tremors or Sedated
Psych: Calm
#Bilateral pulmonary emboli distal left main pulmonary artery/anterior lobar pulmonary artery
#Acute hypoxic respiratory failure 2/2 to bilat Pe's(patient not in any respiratory distress)
-wean o2 as tolerated; goal o2>92%
-CT PE study held given creat clearance of 20 and cta earlier with contrast
-IV heparin drip x 24 hours - then switched to Eliquis - cost is ok
-weaned off o2
-Check 2D echo
-LE Dopplers negative
-Trop neg; BNP 2000
#CKD 3B
Creat 1.9 appears baseline
-Follow BMP
-Continue sodium bicarb 325 mg p.o. twice daily
#Dementia�mild
-Continue rivastigmine 4.6 transdermal patch and Namenda 10 mg twice daily
#GERD/Gastric
#History of bleeding ulcer
-Continue omeprazole 40 mg twice daily
#HTN
BP 132/93
-hold hctz
# HLD
-statin
#Depression/anxiety
-Continue Lexapro 10 mg daily
# MVP
#Restless leg syndrome
-Patient is on gabapentin 400 mg twice daily and 1200 mg every afternoon
Due to patient's CrCl of 20 with max dose gabapentin 700 mg recommended I will give 200 mg mg of gabapentin 0800, 1600, 2200
#SHIRLEY-noncompliant with his CPAP for the past 4 to 5 months
I advised patient to follow-up with his pulmonary Dr. Garcia for repeat PFTs/sleep study
#Prostate cancer in remission since 2004
#BPH
Continue Flomax 0.4 mg at bedtime
#Bilateral hearing aids
Full code per patient
Anticipated Discharge: Within 24 hours
Subjective/Interval History
-
Date of Service: August 26, 2024
Weaned off O2, no acute events overnight
Objective Data
-
Labs:
Laboratory Results
08/26/24
07:34
WBC 7.2
Hgb 13.9
Hct 41.1
Plt Count 268
APTT 76.0 H
Sodium 140
Potassium 4.2
Chloride 107
Carbon Dioxide 21 L
BUN 31 H
Creatinine 1.8 H
Glucose 99
Calcium 9.3
Total Bilirubin 0.4
AST 17
ALT 18
Alkaline Phosphatase 114
Vital Signs:
Vital Signs
Temp Pulse Resp BP Pulse Ox
98.9 F 97 18 127/91 96
08/26/24 11:00 08/26/24 11:00 08/26/24 11:00 08/26/24 11:00 08/26/24 11:00
I&O
08/25/24 08/26/24 08/27/24
06:59 06:59 06:59
Intake Total 360 / 360
Balance 360 / 360
Review of Systems
-
History Source: Patient
All other systems: Not reviewed unless documented
Data Reviewed
-
CT Scan: Image personally visualized and interpreted and Report Reviewed by me
Labs: Labs Reviewed by me
--- NOTE | 2024-08-26 15:40 | CM ---
CM reviewed chart, patient for ECHO tomorrow. Patient seen bedside with daughter. CM discussed recommendations of VN, patient declining at this time. CM will continue to follow for all discharge planning needs.
Plan; home no needs, declining VN services.
[2024-08-26] MEDS: NEURONTIN 300 MG PO (20:09)
[2024-08-26] MEDS: FLOMAX 0.4 MG PO (20:09)
[2024-08-26] MEDS: XALATAN OPHTHALMIC SOLUTION 1 DROP BOTH EYES (20:10)
[2024-08-27 03:25] VITALS: BP 124/81
[2024-08-27 07:41] VITALS: BP 117/85
[2024-08-27] MEDS: ELIQUIS 10 MG PO (07:45)
[2024-08-27] MEDS: LEXAPRO 10 MG PO (07:48)
[2024-08-27] MEDS: EXELON PATCH 4.6 MG TRANSDERM (07:49)
[2024-08-27] MEDS: OSCAL 500 + D 500 MG PO (07:51)
[2024-08-27] MEDS: VISBIOME 1 CAP PO (07:51)
[2024-08-27] MEDS: NAMENDA 10 MG PO (07:52)
[2024-08-27] MEDS: NEURONTIN 200 MG PO ×2 (07:52→15:52)
[2024-08-27] MEDS: PROTONIX 40 MG PO ×2 (07:52→19:12)
[2024-08-27] MEDS: VITAMIN D3 (cholecalciferol) 25 MCG PO (07:52)
[2024-08-27] MEDS: THERAGRAN 1 TABLET PO (07:53)
[2024-08-27] MEDS: SODIUM BICARBONATE 325 MG PO ×2 (07:53→19:12)
[2024-08-27] MEDS: COMBIGAN EYE DROPS 1 DROP BOTH EYES ×2 (07:53→19:12)
[2024-08-27] MEDS: PRAVACHOL 20 MG PO (07:54)
[2024-08-27 09:40] LABS: % Basophils 0.4 % (0-2); % Eosinophils 1.1 % (0-6); % Immature Granulocytes 0.9 % (0-0.5); % Lymphocytes 17.9 % (20.5-51.1); % Monocytes 9.4 % (1.7-9.3); % Neutrophils 70.3 % (42.2-75.2); Absolute Eosinophils 0.1 10^3/uL (0-0.7); Absolute Immature Granulocytes 0.1 10^3/uL (0-0.05); Absolute Lymphocytes 1.4 10^3/uL (1.2-3.4); Absolute Monocytes 0.7 10^3/uL (0.1-0.6); Absolute Neutrophils 5.5 10^3/uL (1.4-6.5); Hematocrit 38.9 % (39.0-52.0); Hemoglobin 12.8 g/dL (13.0-18.0); Mean Corp Hgb Conc. 32.9 g/dL (33.0-37.0); Mean Corpuscular Hgb 33.3 pg (27.0-31.0); Mean Corpuscular Volume 101.3 fL (80.0-94.0); Mean Platelet Volume 9.3 fL (7.4-10.4); Nucleated Red Blood Cells % 0 % (-); Platelet Count 267 10^3/uL (130-400); Red Blood Cell Count 3.84 10^6/uL (4.70-6.10); Red Cell Dist. Width 14.1 % (11.5-14.5); White Blood Cell Count 7.9 10^3/uL (4.8-10.8)
[2024-08-27 10:02] LABS: ALT (SGPT) 19 U/L (0-50); AST (SGOT) 25 U/L (17-59); Albumin 3.2 g/dl (3.5-5.0); Alkaline Phosphatase 91 U/L (38-126); Blood Urea Nitrogen 33 mg/dl (9-20); Carbon Dioxide 21 mmol/L (22-30); Chloride 106 mmol/L (98-107); Estimated Creatinine Clearance 20 ml/min; Glucose 159 mg/dl (70-99); Potassium 4.4 mmol/L (3.5-5.1); Sodium 138 mmol/L (135-145); Total Bilirubin 0.4 mg/dl (0.2-1.3); Total Protein 5.7 g/dl (6.3-8.2); eGFR 34.35
[2024-08-27 11:16] VITALS: BP 97/67
--- NOTE | 2024-08-27 11:17 | W.PN.HOSP.TC ---
Today's Communication/Plan
-
pending Echo reading as planned
CT chest/abd/pelvis survey
possible d/c afterwards
Assessment / Plan
Assessment / Plan
83yo M with PMHx of HTN, CKD, GERD, RLS, SHIRLEY, anxiety came with transient dizziness and on admission CTA head and neck done due to inital concerns for CVA. Found b/l pulmonary emboli without known precipitation factor. LE US neg for DVT. Recommended
cancer screening with colonoscopy, PSA, possible cancer markers as outpatient. Hypoxia resolved, patient started on Eliquis and low copay confirmed. Dizzoness resolved.
A/P:
#Acute unprovoked PE with acute hypoxic insufficiency
Eliquis
Follow up with PCP and wing commander upon d/c. Will need cancer screening. Reasonable for inpatient CT chest/abd/pelvis while inpatient
Echo scheduled
LE US neg for DVT
Weaned off O2
#CKD stage 3b
#GERD
#PUD
#HLD
#MVP#SHIRLEY non-compliant with CPAP
#Hx of prostate CA
#BPH
#RLS
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
cont home meds
DVT ppx eliquis
Full code
I have spent at least 38min reviewing chart, test results, communication with consultants and direct patient care
Anticipated Discharge: Within 24 hours
Subjective/Interval History
-
Date of Service: August 27, 2024
Objective Data
-
Labs:
Laboratory Results
08/27/24
09:15
WBC 7.9
Hgb 12.8 L
Hct 38.9 L
Plt Count 267
Sodium 138
Potassium 4.4
Chloride 106
Carbon Dioxide 21 L
BUN 33 H
Creatinine 1.9 H
Glucose 159 H
Calcium 9.0
Total Bilirubin 0.4
AST 25
ALT 19
Alkaline Phosphatase 91
Vital Signs:
Vital Signs
Temp Pulse Resp BP Pulse Ox
98.5 F 96 20 117/85 94
08/27/24 07:41 08/27/24 07:41 08/27/24 07:41 08/27/24 07:41 08/27/24 07:41
I&O
08/26/24 08/27/24 08/28/24
06:59 06:59 06:59
Intake Total 360 / 360 720 / 720
Balance 360 / 360 720 / 720
Review of Systems
-
All other systems: Reviewed and negative
Constitutional: Reports No Symptoms
Physical Exam
-
General: No Apparent Distress
Respiratory: Clear to Auscultation
GI: Soft, Nontender and Nondistended
Neuro: Awake, Alert, Oriented and AO x 3
Psych: Calm
[2024-08-27] MEDS: OMNIPAQUE 50 ML PO (11:43)
--- NOTE | 2024-08-27 13:30 | PN.CDI ---
CDI
- -
CDI:
Physician Documentation Request
Admit Date: 08/24/24 20:51
Dear Doctor Jesu,
.
Clinical Indicators:
Patient admitted with unprovoked PE.
08/25 note/assessment,-'pt with a 16 lb (11%) weight loss in 6 months significant.'
-'With weight loss of < 75% estimated needs > 1 month and > 10% weight loss in 6
months pt meets AND/ASPEN criteria for moderate protein calorie malnutrition of
chronic illness.'
Based on the above information and your assessment, which of the following most accurately represents the patient's nutritional status?
Moderate Protein Calorie Malnutrition
Other (please specify)
[employer] Criteria ([employer] Hospitalist 2017)
2 or more criteria must be present for either
non severe or severe malnutrition
Note that the criteria differs related to the
presence of an acute or chronic illness
Acute Illness Chronic Illness
Energy Intake Non Severe: <75% for >7 days Non Severe: <75% for >1 month
Severe: <50% for >5 days Severe: <75% for >1 month
Weight Loss Non Severe: 1-2% over 1 week Non Severe: 5% over 1 month
5% over 1 month 7.5% over 3 months
7.5% over 3 months 10% over 6 months
1 year N/A 20% over 1 year
Severe: >2% over 1 week Severe: >5% over 1 month
>5% over 1 month >7.5% over 3 months
>7.5% over 3 months >10% over 6 months
1 year N/A >20% over 1 year
Body Fat Non Severe: Mild Decrease Non Severe: Mild Loss
Severe: Moderate Decrease Severe: Severe Loss
Muscle Mass Non Severe: Mild Decrease Non Severe: Mild Loss
Severe: Moderate Decrease Severe: Severe Loss
Fluid Accumulation Non Severe: Mild Accumulation Non Severe: Mild Accumulation
Severe: Moderate to severe Severe: Moderate to severe
accumulation accumulation
Reduced Staff Home Therapy Rn Strength Non Severe: N/A Non Severe: N/A
Severe: Measurably reduced Severe: Measurably reduced
Additional criteria that can be used to Determine if Mild or Moderate Malnutrition (Merck Manual 2018)
Mild Moderate Severe
Albumin gm/dl <3.0 gm/dl <2.5 gm/dl <2.0 gm/dl
Pre Albumin mg/dl <15 gm/dl <10 mg/dl <5.0 mg/dl
BMI <18.5 <17 <16
Use of terms such as suspected, likely, concern for, or probable (associated with a specific diagnosis that is being evaluated, monitored, or treated as if it exists) are acceptable and can be coded in the inpatient setting, when documented at the
time of discharge.
Thank you,
Blanca Del Castillo RN BSN
CDI Specialist
available via tiger text
Please use your independent medical judgment in providing your response.
--- NOTE | 2024-08-27 14:25 | CM ---
Chart reviewed and patient's pl;an is to home when stable, patient has declined visiting nurses.
Plan; Home no needs.
[2024-08-27 15:17] VITALS: BP 147/93
[2024-08-27 15:33] VITALS: O2SAT 99
--- NOTE | 2024-08-27 17:09 | W.PN.UPDATE ---
Update Note
Progress Note Update
Pleural-based right lower lobe pulmonary mass:
switch to heparin drip starting 08/27/24 8:00pm (if biopsy needed)
pulm evaluation
[2024-08-27 18:19] LABS: APTT 35.1 Sec (23.4-35.0)
[2024-08-27] MEDS: NEURONTIN 300 MG PO (19:15)
[2024-08-27] MEDS: FLOMAX 0.4 MG PO (19:15)
[2024-08-27] MEDS: XALATAN OPHTHALMIC SOLUTION 1 DROP BOTH EYES (19:15)
[2024-08-27] MEDS: HEPARIN 25000 UNITS/250 ML IV (20:03)
[2024-08-27 23:25] VITALS: BP 100/61
[2024-08-28 02:29] LABS: APTT 106.4 Sec (23.4-35.0)
[2024-08-28 07:00] VITALS: BP 140/88
[2024-08-28] MEDS: SODIUM BICARBONATE 325 MG PO (07:30)
[2024-08-28] MEDS: THERAGRAN 1 TABLET PO (07:30)
[2024-08-28] MEDS: VITAMIN D3 (cholecalciferol) 25 MCG PO (07:30)
[2024-08-28] MEDS: VISBIOME 1 CAP PO (07:30)
[2024-08-28] MEDS: PRAVACHOL 20 MG PO (07:30)
[2024-08-28] MEDS: OSCAL 500 + D 500 MG PO (07:30)
[2024-08-28] MEDS: PROTONIX 40 MG PO (07:30)
[2024-08-28] MEDS: LEXAPRO 10 MG PO (07:30)
[2024-08-28] MEDS: NEURONTIN 200 MG PO (07:31)
[2024-08-28] MEDS: EXELON PATCH 4.6 MG TRANSDERM (07:32)
[2024-08-28] MEDS: COMBIGAN EYE DROPS 1 DROP BOTH EYES (07:32)
[2024-08-28] MEDS: NAMENDA 10 MG PO (07:33)
[2024-08-28 08:30] LABS: Hematocrit 38.3 % (39.0-52.0); Hemoglobin 13.1 g/dL (13.0-18.0); Mean Corp Hgb Conc. 34.2 g/dL (33.0-37.0); Mean Corpuscular Hgb 34.1 pg (27.0-31.0); Mean Corpuscular Volume 99.7 fL (80.0-94.0); Mean Platelet Volume 9.6 fL (7.4-10.4); Platelet Count 286 10^3/uL (130-400); Red Blood Cell Count 3.84 10^6/uL (4.70-6.10); Red Cell Dist. Width 14.2 % (11.5-14.5)
[2024-08-28 08:35] LABS: APTT 147.3 Sec (23.4-35.0)
[2024-08-28 08:52] LABS: ALT (SGPT) 25 U/L (0-50); AST (SGOT) 31 U/L (17-59); Albumin 3.4 g/dl (3.5-5.0); Alkaline Phosphatase 101 U/L (38-126); Blood Urea Nitrogen 37 mg/dl (9-20); Calcium 8.9 mg/dl (8.4-10.2); Carbon Dioxide 24 mmol/L (22-30); Chloride 105 mmol/L (98-107); Estimated Creatinine Clearance 20 ml/min; Glucose 98 mg/dl (70-99); Potassium 5.1 mmol/L (3.5-5.1); Sodium 138 mmol/L (135-145); Total Bilirubin 0.4 mg/dl (0.2-1.3); Total Protein 5.9 g/dl (6.3-8.2); eGFR 34.35
--- NOTE | 2024-08-28 11:59 | CON.PUL ---
Consultation
Consultation Request
Date/Time Consultation Requested: 08/28/2024
Date/Time Consultation Performed: 08/28/2024
Requesting Provider: Dr. Nails
Performing Provider: Dr. Silvano Richards
Reason for Consultation: Hypoxemic respiratory failure
Medical History
-
History of Present Illness:
83-year-old man who lives at home by himself, came to the hospital complaining of few days of intermittent dizziness and nausea. Dizziness was severe enough the day of admission that prompted him to come to the emergency room. He has been having
balancing issues, ambulating with a walker.
He underwent CT angiogram of the head and neck in the emergency room for evaluation of dizziness and it Showed pulmonary emboli bilaterally involving the left distal main pulmonary artery and right interlobar artery. Patient denies prior history of
DVT, PE or clotting disorders.
Currently not requiring supplemental oxygen
Hemodynamically stable
Denies chest pain.
Past Medical History
Past Medical History: Other (See assessment and plan)
Social History
Tobacco: Non-smoker
Alcohol: None
Drug: None
Personal: Single
Living: Alone
Employment: Retired
Family History
Family History: Reviewed & Not Pertinent
Allergies / Home Medications
Allergies
Allergy/AdvReac Type Severity Reaction Status Date / Time
No Known Allergies Allergy Verified 03/15/24 13:28
Home Medications
�Medication �Instructions �Recorded �Confirmed �Last Taken �Type
Lactobacillus rhamnosus GG 10 1 cap PO DAILY Supplement 03/14/24 08/24/24 08/24/24 History
billion cell capsule (Culturelle)
acetaminophen 500 mg tablet 1,300 mg PO BID Pain 03/14/24 08/24/24 08/24/24 History
aspirin 81 mg tablet,delayed 81 mg PO HS Blood Clot 03/14/24 08/24/24 08/23/24 History
release Prevention/Tx
brimonidine 0.2 %-timolol 0.5 % 1 drp BOTH EYES BID Eye Condition 03/14/24 08/24/24 08/24/24 History
eye drops (Combigan)
escitalopram oxalate 10 mg tablet 10 mg PO DAILY Mental 03/14/24 08/24/24 08/24/24 History
Health/Anxiety
hydrochlorothiazide 25 mg tablet 25 mg PO DAILY Blood Pressure 03/14/24 08/24/24 08/24/24 History
latanoprost (PF) 0.005 % eye drops 1 drp BOTH EYES HS Eye Condition 03/14/24 08/24/24 08/23/24 History
in a dropperette
memantine 10 mg tablet 10 mg PO BID Neurological Condition 03/14/24 08/24/24 08/24/24 History
omeprazole 40 mg capsule,delayed 40 mg PO BID Gastrointestinal Issue 03/14/24 08/24/24 08/24/24 History
release
pravastatin 20 mg tablet 20 mg PO HS High Cholesterol 03/14/24 08/24/24 08/23/24 History
rivastigmine 4.6 mg/24 hour 4.6 mg transdermal DAILY for memory 03/14/24 08/24/24 08/24/24 History
transdermal patch
sodium bicarbonate 325 mg tablet 325 mg PO BID Supplement 03/14/24 08/24/24 Unknown History
tamsulosin 0.4 mg capsule (Flomax) 0.4 mg PO HS BPH 03/14/24 08/24/24 08/23/24 History
calcium 500 mg (as 1 tab PO DAILY Supplement 08/24/24 08/24/24 08/23/24 History
carbonate)-vitamin D3 10 mcg (400
unit) tablet (Calcium 500 With D)
cholecalciferol (vitamin D3) 25 25 mcg PO DAILY Supplement 08/24/24 08/24/24 08/24/24 History
mcg (1,000 unit) capsule (Vitamin
D3)
coQ10 (ubiquinol) 100 mg capsule 100 mg PO DAILY Supplement 08/24/24 08/24/24 08/24/24 History
(Qunol Shay CoQ10)
dorzolamide 2 % eye drops 1 drp BOTH EYES BID Eye Condition 08/24/24 08/24/24 08/24/24 History
multivitamin 1 tab PO DAILY Supplement 08/24/24 08/24/24 08/24/24 History
apixaban 5 mg (74 tabs) tablets in See Rx Instructions PO .COMPLEX 08/25/24 Unknown Rx
a dose pack (Eliquis DVT-PE Treat #74 ea
30D Start)
gabapentin 100 mg capsule 200 mg (2 x 100 mg) PO 08/25/24 Unknown Rx
BID@0800,1600 #0 caps
gabapentin 300 mg capsule 300 mg PO HS #0 caps 08/25/24 Unknown Rx
Review of Systems
-
History Source: Patient
All other systems: Negative unless noted
Vitals / Labs / Diagnostic Testing
Vital Signs
Temp Pulse Resp BP Pulse Ox
97.8 F 89 16 140/88 95
08/28/24 07:00 08/28/24 07:00 08/28/24 07:00 08/28/24 07:00 08/28/24 07:00
Lab Data
08/28/24 07:48
08/28/24 07:48
Laboratory Results
08/27/24 08/28/24 08/28/24
18:01 02:08 07:48
APTT 35.1 H 106.4 H 147.3 H
Diagnostic Testing:
Physical Exam
-
HEENT: Normocephalic
Cardiovascular: S1/S2
Respiratory: Clear and Non-Labored Respirations
GI: Soft and Non Distended
Neurology: Awake, Alert and No Motor Deficits
Skin: Warm
General: Comfortable
Assessment
-
83-year-old man with past medical history noted, admitted with dizziness. Workup included a CT angiogram of the neck and head. Incidental pulmonary embolism was found. Also incidental lung mass were found. We were consulted for evaluation of
abnormal CT chest and pulmonary embolism.
Lung mass incidental finding right lower lobe 2.9X 1.8 cm spiculated.
Differential diagnosis includes: Rounded atelectasis/malignancy/scarring
Tiny left pleural effusion
Acute/Subacute pulmonary embolism-possibly provoked-sedentary lifestyle
CT head neck angiogram 08/24/2024: Incidental pulmonary emboli bilaterally involving the left distal main pulmonary artery extending into the left subsegmental pulmonary arteries. There is filling defect also in the right interlobar artery
consistent with embolus.
Lower extremity Dopplers 08/25/2024: No evidence for DVT bilaterally.
Increased proBNP 2160//Negative troponin
Echocardiogram 08/27/2024: Exam technically difficult. Small left ventricular size. Ejection fraction 55-60%. Mild LVH. Mild MR. Mild aortic stenosis. Normal RV function. Normal right atrium.
Conditions present prior admission:
Hypertension
Hyperlipidemia
Chronic kidney disease
GERD/gastric ulcers
MVP
Depression
Restless leg syndrome
Obstructive sleep apnea
Depression/anxiety
History of bleeding ulcer
Bilateral hearing aids in place
Status post fracture of the right tib-fib in April 2024 status post repair [facility]
Status post lumbar fusion L4-L5 and S1
Bilateral shoulder replacement
History of cataracts
Mild dementia
Assessment and plan:
From the pulmonary embolism perspective: Patient has been hemodynamically stable, not hypoxemic, not tachycardic. Nontoxic, able to speak in full sentences.
Pulmonary embolism possibly provoked, patient has been recovering from his orthopedic surgery. Recently returned to his apartment about 2 to 3 weeks ago. Ambulating with a walker.
It is not clear whether right lower lobe abnormality is malignancy which could be another risk factor.
Patient is a never smoker.
-
Agree with anticoagulation. Okay to transition to oral at this point.
No plans for lung biopsy at this point.
Suspect patient will need at least 3 to 6 months of anticoagulation depending on mobility and pulmonary nodule/mass evaluation.
-
Right lower lobe pleural-based lung mass, incidental finding about 3 cm in longest diameter.
Differential diagnosis includes rounded atelectasis versus malignancy.
Will start with PET/CT first and depending on results can consider percutaneous biopsy at that time. For now continue with anticoagulation, would prefer if necessary perform biopsy at a later point given acute pulmonary embolism.
My office will arrange at follow-up. Hopefully can see you within 1 to 2 weeks.
-
Will need outpatient pulmonary follow-up, information will be left in the chart.
-
Okay to discharge from my perspective
Daughter updated by Dr. Richards at the bedside 08/28/2024.
--- NOTE | 2024-08-28 12:36 | W.PN.HOSP.TC ---
Today's Communication/Plan
-
dc
Assessment / Plan
Assessment / Plan
83yo M with PMHx of HTN, CKD, GERD, RLS, SHIRLEY, anxiety came with transient dizziness and on admission CTA head and neck done due to inital concerns for CVA. Found b/l pulmonary emboli without known precipitation factor. LE US neg for DVT. Recommended
cancer screening with colonoscopy, PSA, possible cancer markers as outpatient. Hypoxia resolved, patient started on Eliquis and low copay confirmed. Dizzoness resolved. CT showed possible pleural mass and as per Pulmonology plan: Will start with
PET/CT first and depending on results can consider percutaneous biopsy at that time. Veterinary Receptionist will arrange follow up as outpatient in 2-3 weeks. Medically stable to be d/c home.
A/P:
#Acute unprovoked PE with acute hypoxic insufficiency
Eliquis
Echo without RH strain. preserved EF
LE US neg for DVT
Weaned off O2
#Lung mass incidental finding right lower lobe 2.9X 1.8 cm spiculated
Outpatient pulm
#CKD stage 3b
#GERD
#PUD
#HLD
#MVP#SHIRLEY non-compliant with CPAP
#Hx of prostate CA
#BPH
#RLS
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
cont home meds
DVT ppx eliquis
Full code
I have spent at least 36min reviewing chart, test results, communication with consultants and direct patient care
Anticipated Discharge: Today
Subjective/Interval History
-
Date of Service: August 28, 2024
Objective Data
-
Labs:
Laboratory Results
08/28/24 08/28/24 08/28/24
02:08 07:48 14:53
WBC 8.0
Hgb 13.1
Hct 38.3 L
Plt Count 286
APTT 106.4 H 147.3 H Pending
Sodium 138
Potassium 5.1
Chloride 105
Carbon Dioxide 24
BUN 37 H
Creatinine 1.9 H
Glucose 98
Calcium 8.9
Total Bilirubin 0.4
AST 31
ALT 25
Alkaline Phosphatase 101
Vital Signs:
Vital Signs
Temp Pulse Resp BP Pulse Ox
97.8 F 89 16 140/88 95
08/28/24 07:00 08/28/24 07:00 08/28/24 07:00 08/28/24 07:00 08/28/24 07:00
I&O
08/27/24 08/28/24 08/29/24
06:59 06:59 06:59
Intake Total 720 / 720 1440 / 1440
Balance 720 / 720 1440 / 1440
Review of Systems
-
History Source: Patient
All other systems: Reviewed and negative
Physical Exam
-
General: No Apparent Distress
HEENT: Normocephalic
Cardiac: Regular Rhythm
GI: Soft, Nontender and Nondistended
Skin: Warm
Neuro: Awake, Alert, Oriented and AO x 3
Psych: Calm
--- NOTE | 2024-08-28 12:41 | W.DCSUMMARY ---
Addendum entered and electronically signed by Angel Nails MD 08/28/24 14:00:
#Moderate Protein Calorie Malnutrition
increase calorie intake
Original Note:
Discharge Summary
Discharge Data
Date of Admission: 08/24/24
Date of Discharge: 08/28/24
-
Pending Results: No
Hospital Course
83yo M with PMHx of HTN, CKD, GERD, RLS, SHIRLEY, anxiety came with transient dizziness and on admission CTA head and neck done due to inital concerns for CVA. Found b/l pulmonary emboli without known precipitation factor. LE US neg for DVT. Recommended
cancer screening with colonoscopy, PSA, possible cancer markers as outpatient. Hypoxia resolved, patient started on Eliquis and low copay confirmed. Dizzoness resolved. CT showed possible pleural mass and as per Pulmonology plan: Will start with
PET/CT first and depending on results can consider percutaneous biopsy at that time. Shake Feeder will arrange follow up as outpatient in 2-3 weeks. Medically stable to be d/c home.
I have spent at least 36min reviewing chart, test results, communication with consultants and direct patient care
Patient was managed for:
#Acute unprovoked PE with acute hypoxic insufficiency
#Renal cysts -known to patient and had follow up before
#Lung mass incidental finding right lower lobe 2.9X 1.8 cm spiculated
#CKD stage 3b
#GERD
#PUD
#HLD
#MVP#SHIRLEY non-compliant with CPAP
#Hx of prostate CA
#BPH
#RLS
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
Discharge Plan
-
Patient Disposition: Home (Routine Discharge)
Discharge Diagnosis/Procedures: Pulmonary Embolism
Referrals:
Beatrice Vergara CRNP [Family Provider] -
Silvano Hamilton MD [Active] - in one to two weeks (Will need PET CT. May see BRIANA)
Prescriptions:
New
Eliquis DVT-PE Treat 30D Start 5 mg (74 tabs) tablets,dose pack
See Rx Instructions .ROUTE .COMPLEX Qty: 74 0RF
Rx Instructions:
orally per package directions
gabapentin 300 mg Capsule
300 mg PO HS Qty: 0 0RF
gabapentin 100 mg Capsule
200 mg PO BID@0800,1600 Qty: 0 0RF
Continued
sodium bicarbonate 325 mg Tablet
325 mg PO BID
omeprazole 40 mg Capsule,Delayed Release(Dr/Ec)
40 mg PO BID
aspirin 81 mg Tablet,Delayed Release (Dr/Ec)
81 mg PO HS
acetaminophen 500 mg Tablet
1,300 mg PO BID
tamsulosin [Flomax] 0.4 mg Capsule
0.4 mg PO HS
pravastatin 20 mg Tablet
20 mg PO HS
Culturelle 10 billion cell Capsule
1 cap PO DAILY
escitalopram oxalate 10 mg Tablet
10 mg PO DAILY
memantine 10 mg Tablet
10 mg PO BID
rivastigmine 4.6 mg/24 hour Patch 24 Hour
4.6 mg TRANSDERMAL DAILY
Rx Instructions:
left upper arm patch daily
brimonidine-timolol [Combigan] 0.2-0.5 % Drops
1 drp BOTH EYES BID
latanoprost (PF) 0.005 % Dropperette
1 drp BOTH EYES HS
multivitamin Tablet
1 tab PO DAILY
calcium carbonate-vitamin D3 [Calcium 500 With D] 500 mg-10 mcg (400 unit) Tablet
1 tab PO DAILY
cholecalciferol (vitamin D3) [Vitamin D3] 25 mcg (1,000 unit) Capsule
25 mcg PO DAILY
dorzolamide 2 % drops
1 drp BOTH EYES BID
coQ10 (ubiquinol) [Qunol Shay CoQ10] 100 mg Capsule
100 mg PO DAILY
Held
hydrochlorothiazide 25 mg Tablet
25 mg PO DAILY
Hold Instructions: Resume on 08/30/24.
Discontinued
gabapentin 400 mg Capsule
800 mg PO BID@0800,1800
gabapentin 400 mg Capsule
1,200 mg PO HS
Discharge Orders:
Discharge Patient (As Directed); Ordered 08/28/24
Ordered By: Angel Nails
Discharge Date and Time
Print Language: SAMMARINESE
[2024-08-28] MEDS: ELIQUIS 10 MG PO (12:53)
[2024-08-28 13:14] VITALS: BP 122/86
== END 2024-08-28 13:33 | disposition home or self-care (01) | DRG 176 ==
LOC: 4 WEST ACU 20:51
PROVIDERS: Clinical Nurse Specialist Family Health; Internal Medicine; Registered Nurse; ADMITTING PHYSICIAN Internal Medicine; ATTENDING PHYSICIAN Internal Medicine; CONSULT PHYSICIAN Internal Medicine Critical Care Medicine; EMERGENCY PHYSICIAN Emergency Medicine; FAMILY PHYSICIAN Nurse Practitioner Family
DX: I26.99 Other pulmonary embolism without acute cor pulmonale (principal); E44.0 Moderate protein-calorie malnutrition; K21.9 Gastro-esophageal reflux disease without esophagitis; K25.9 Gastric ulcer, unspecified as acute or chronic, without hemorrhage or perforation; N18.32 Chronic kidney disease, stage 3b; E78.00 Pure hypercholesterolemia, unspecified; N40.0 Benign prostatic hyperplasia without lower urinary tract symptoms; F32.A Depression, unspecified; G25.81 Restless legs syndrome; C61 Malignant neoplasm of prostate; I12.9 Hypertensive chronic kidney disease with stage 1 through stage 4 chronic kidney disease, or unspecified chronic kidney disease; Z91.199 Patient's noncompliance with other medical treatment and regimen due to unspecified reason; Z11.52 Encounter for screening for COVID-19; Z68.25 Body mass index [BMI] 25.0-25.9, adult
CPT/HCPCS: 70496; 70498; 71046; 71250; 74176; 80053; 83880; 84484; 85025; 85027; 85610; 85730; 87811; 93005; 93306; 93970; 96361; 96374; 97116; 97162; 97166; 99285; Q9967

== ENCOUNTER → 2024-11-07 09:14 | Outpatient (REF) | payer MEDICARE, SELFPAY ==
[2024-11-07 11:48] LABS: Urine Albumin 1+ (Neg - Trace); Urine Bilirubin Negative (Negative); Urine Character Clear (Clear); Urine Color Yellow; Urine Glucose Negative (Negative); Urine Ketone Negative (Negative); Urine Leukocyte Negative (Negative); Urine Nitrite Negative (Negative); Urine Occult Blood Negative (Negative); Urine Specific Gravity 1.015 (<1.030); Urine Urobilinogen Negative (Neg - 1+)
[2024-11-07 11:54] LABS: % Basophils 0.7 % (0-2); % Eosinophils 6.4 % (0-6); % Immature Granulocytes 0.3 % (0-0.5); % Lymphocytes 27.9 % (20.5-51.1); % Monocytes 13.5 % (1.7-9.3); % Neutrophils 51.2 % (42.2-75.2); Absolute Basophils 0.1 10^3/uL (0-0.2); Absolute Eosinophils 0.4 10^3/uL (0-0.7); Absolute Lymphocytes 1.9 10^3/uL (1.2-3.4); Absolute Monocytes 0.9 10^3/uL (0.1-0.6); Absolute Neutrophils 3.4 10^3/uL (1.4-6.5); Hematocrit 33.5 % (39.0-52.0); Hemoglobin 10.9 g/dL (13.0-18.0); Mean Corp Hgb Conc. 32.5 g/dL (33.0-37.0); Mean Corpuscular Hgb 32.9 pg (27.0-31.0); Mean Corpuscular Volume 101.2 fL (80.0-94.0); Mean Platelet Volume 9.8 fL (7.4-10.4); Nucleated Red Blood Cells % 0 % (-); Platelet Count 214 10^3/uL (130-400); Red Blood Cell Count 3.31 10^6/uL (4.70-6.10); Red Cell Dist. Width 14.1 % (11.5-14.5); White Blood Cell Count 6.7 10^3/uL (4.8-10.8)
[2024-11-07 11:55] LABS: Urine Red Blood Cell 0-2 /HPF (0-2); Urine Squamous Cell 0-2 /LPF (Few); Urine White Cell 0-2 /HPF (0-5)
[2024-11-07 12:22] LABS: Albumin 3.8 g/dl (3.5-5.0); Blood Urea Nitrogen 28 mg/dl (9-20); Calcium 8.2 mg/dl (8.4-10.2); Carbon Dioxide 20 mmol/L (22-30); Chloride 106 mmol/L (98-107); Glucose 87 mg/dl (70-99); Phosphorus 3.7 mg/dl (2.5-4.5); Potassium 4.5 mmol/L (3.5-5.1); Sodium 137 mmol/L (135-145); eGFR 42.22
[2024-11-07 13:30] LABS: Intact PTH 273.2 pg/ml (13.6-85.8)
[2024-11-07 14:46] LABS: Protein/creatinine Ratio 0.1; Urine Protein 11 mg/dl
== END ==
LOC: HWRAD 09:14
PROVIDERS: ATTENDING PHYSICIAN Internal Medicine; FAMILY PHYSICIAN Nurse Practitioner Family
DX: N18.32 Chronic kidney disease, stage 3b (principal); N28.1 Cyst of kidney, acquired
CPT/HCPCS: 36415; 76770; 80069; 81003; 81015; 82570; 83970; 84156; 85025

== ENCOUNTER → 2024-12-26 14:54 | Outpatient (REF) | payer MEDICARE, SELFPAY | LOC: HWRAD 14:54 | PROVIDERS: ATTENDING PHYSICIAN Nurse Practitioner Family | DX: R10.2 Pelvic and perineal pain (principal) | CPT/HCPCS: 74176 ==

== ENCOUNTER → 2025-01-28 10:33 | Outpatient (REF) | payer MEDICARE, SELFPAY ==
[2025-01-28 16:07] LABS: ALT (SGPT) 20 U/L (0-50); AST (SGOT) 16 U/L (17-59); Albumin 3.9 g/dl (3.5-5.0); Alkaline Phosphatase 77 U/L (38-126); Blood Urea Nitrogen 33 mg/dl (9-20); Calcium 9.4 mg/dl (8.4-10.2); Carbon Dioxide 24 mmol/L (22-30); Chloride 108 mmol/L (98-107); Glucose 106 mg/dl (70-99); HDL Cholesterol 65 mg/dl; LDL Cholesterol, Calculated 58 mg/dl; Phosphorus 3.6 mg/dl (2.5-4.5); Potassium 4.7 mmol/L (3.5-5.1); Sodium 141 mmol/L (135-145); Total Bilirubin 0.6 mg/dl (0.2-1.3); Total Cholesterol 144 mg/dl (50-199); Total Protein 6.3 g/dl (6.3-8.2); Triglyceride 105 mg/dl (10-149); Very Low Density Lipoprotein 21 mg/dl (0-30); eGFR 41.96
[2025-01-28 16:10] LABS: Urine Albumin 2+ (Neg - Trace); Urine Bilirubin Negative (Negative); Urine Character Clear (Clear); Urine Color Yellow; Urine Glucose Negative (Negative); Urine Ketone Negative (Negative); Urine Leukocyte Negative (Negative); Urine Nitrite Negative (Negative); Urine Occult Blood Negative (Negative); Urine Urobilinogen Negative (Neg - 1+)
[2025-01-28 16:18] LABS: Protein/creatinine Ratio 0.1; Urine Protein 8 mg/dl
[2025-01-28 16:24] LABS: Vitamin D, 25-OH*** 53.5 ng/mL (30-80)
[2025-01-28 16:31] LABS: Urine Red Blood Cell 0-2 /HPF (0-2); Urine White Cell 0-2 /HPF (0-5)
[2025-01-28 16:59] LABS: % Basophils 0.7 % (0-2); % Eosinophils 2.3 % (0-6); % Immature Granulocytes 0.1 % (0-0.5); % Lymphocytes 30.2 % (20.5-51.1); % Monocytes 11.5 % (1.7-9.3); % Neutrophils 55.2 % (42.2-75.2); Absolute Basophils 0.1 10^3/uL (0-0.2); Absolute Eosinophils 0.2 10^3/uL (0-0.7); Absolute Lymphocytes 2.1 10^3/uL (1.2-3.4); Absolute Monocytes 0.8 10^3/uL (0.1-0.6); Absolute Neutrophils 3.8 10^3/uL (1.4-6.5); Hematocrit 33.9 % (39.0-52.0); Mean Corp Hgb Conc. 32.4 g/dL (33.0-37.0); Mean Corpuscular Hgb 31.5 pg (27.0-31.0); Mean Corpuscular Volume 97.1 fL (80.0-94.0); Mean Platelet Volume 10.5 fL (7.4-10.4); Nucleated Red Blood Cells % 0 % (-); Platelet Count 240 10^3/uL (130-400); Red Blood Cell Count 3.49 10^6/uL (4.70-6.10); Red Cell Dist. Width 14.5 % (11.5-14.5); White Blood Cell Count 6.9 10^3/uL (4.8-10.8)
[2025-01-30 12:35] LABS: Intact PTH 86.2 pg/ml (13.6-85.8)
== END ==
LOC: HWLAB 10:33
PROVIDERS: ATTENDING PHYSICIAN Internal Medicine; FAMILY PHYSICIAN Nurse Practitioner Family
DX: R19.7 Diarrhea, unspecified (principal); G47.33 Obstructive sleep apnea (adult) (pediatric); N18.32 Chronic kidney disease, stage 3b; R91.1 Solitary pulmonary nodule; I27.82 Chronic pulmonary embolism
CPT/HCPCS: 80053; 80061; 81003; 81015; 82306; 82570; 83970; 84100; 84156; 85025

== ENCOUNTER → 2025-03-19 12:53 | Outpatient (REF) | payer MEDICARE, SELFPAY | LOC: HWRAD 12:53 | PROVIDERS: ATTENDING PHYSICIAN Surgery; FAMILY PHYSICIAN Nurse Practitioner Family | DX: R10.31 Right lower quadrant pain (principal); R22.41 Localized swelling, mass and lump, right lower limb | CPT/HCPCS: 76882 ==

== ENCOUNTER → 2025-05-15 08:56 | Outpatient (REF) | payer MEDICARE, SELFPAY ==
[2025-05-15 13:07] LABS: Albumin 3.8 g/dl (3.5-5.0); Blood Urea Nitrogen 34 mg/dl (9-20); Calcium 8.5 mg/dl (8.4-10.2); Carbon Dioxide 27 mmol/L (22-30); Chloride 110 mmol/L (98-107); Glucose 101 mg/dl (70-99); Potassium 4.7 mmol/L (3.5-5.1); Sodium 142 mmol/L (135-145); eGFR 39.02
== END ==
LOC: HWLAB 08:56
PROVIDERS: ATTENDING PHYSICIAN Internal Medicine; FAMILY PHYSICIAN Nurse Practitioner Family
DX: N18.32 Chronic kidney disease, stage 3b (principal)
CPT/HCPCS: 36415; 80069